=== PATIENT | male | born 1985 | race Two or more races ===

== ENCOUNTER 2025-01-28 10:30 | Inpatient (IN) | payer OTHER ==
[~2025-01-28] VITALS: Ht 152.4 cm; Wt 0.5 kg
[2025-01-28 13:23] VITALS: BP 111/74
[2025-02-05] MEDS ORDERED: ENOXAPARIN SODIUM 40 MG/0.4 ML SYRINGE SUBCUTANEO ONE (14:15)
[2025-02-05] MEDS ORDERED: CEFAZOLIN SODIUM 1,000 MG VIAL IV ONE (14:15)
[2025-02-05] MEDS ORDERED: DEXTROSE 5 %-0.45 % SOD CHLORD 1,000 ML IV SCH (16:10)
[2025-02-05] MEDS ORDERED: MEPERIDINE HCL/PF 50 MG/ML VIAL IV PRN (16:15)
[2025-02-05] MEDS ORDERED: ONDANSETRON HCL 2 MG/ML VIAL IV PRN (16:15)
[2025-02-05] MEDS ORDERED: DOCUSATE SODIUM 100MG CAP PO SCH (17:00)
[2025-02-05] MEDS ORDERED: CEFAZOLIN SODIUM 1,000 MG VIAL IV SCH (17:00)
[2025-02-05] MEDS ORDERED: CYCLOBENZAPRINE HCL 5 MG TABLET PO SCH (17:00)
[2025-02-05] MEDS ORDERED: MORPHINE SULFATE 4 MG/ML VIAL IV ONE (18:25)
[2025-02-06 00:54] VITALS: BP 122/76; O2SAT 98
[2025-02-06 08:00] VITALS: BP 130/77; O2SAT 97
[2025-02-06 08:54] LABS: BASO % 0.3 % (0.1-1.2); EOS # 0.06 (0.04-0.54); EOS % 0.5 % (0.7-7.0); LYMPH # 1.77 (1.18-3.74); LYMPH % 14.9 % (19.3-53.1); MEAN PLATELET VOLUME 10.20 fl (9.4-12.4); MONO # 1.22 (0.24-0.82); MONO % 10.3 % (4.7-12.5); NEUT # 8.74 (1.56-6.13); NEUT % 73.7 % (34.0-71.1); RED CELL DISTRIBUTION WIDTH 12.5 % (11.6-14.4)
[2025-02-06 09:27] LABS: BUN CREA RATIO 9.0 (7.0-25.0); CREATININE SERUM 1.41 mg/dL (0.70-1.30); GFR 56.25; GLUCOSE FASTING 88.0 mg/dL (65-100); OSMOLALITY SERUM 279.0 MOSM/KG (275-295)
[2025-02-06] MEDS ORDERED: ACETAMINOPHEN WITH CODEINE 1 UDTAB TABLET PO PRN (15:15)
[2025-02-06 16:00] VITALS: BP 117/82; O2SAT 98
[2025-02-06] MEDS ORDERED: SIMETHICONE 125 MG CAPSULE PO SCH (17:00)
[2025-02-06] MEDS ORDERED: ENOXAPARIN SODIUM 40 MG/0.4 ML SYRINGE SUBCUTANEO NR (18:00)
[2025-02-07 01:09] VITALS: BP 129/87; O2SAT 100
[2025-02-07 10:19] VITALS: BP 123/82; O2SAT 95
[2025-02-07 16:00] VITALS: BP 118/79; O2SAT 95
[2025-02-08 01:17] VITALS: BP 146/79; O2SAT 95
== END 2025-02-07 06:00 | disposition home or self-care (01) | DRG 658 ==
LOC: SURG 02-05 08:30 → O/R 02-05 13:57 → SURH 02-05 13:57
PROVIDERS: ADMIT Urology; ATTEND Urology
PROC: 07BC4ZZ Excision of Pelvis Lymphatic, Percutaneous Endoscopic Approach (ICD-10-PCS; 2025-02-05)
PROC: 0TT04ZZ Resection of Right Kidney, Percutaneous Endoscopic Approach (ICD-10-PCS; principal; 2025-02-05 08:30)
DX: C64.1 Malignant neoplasm of right kidney, except renal pelvis (principal); R59.0 Localized enlarged lymph nodes